=== PATIENT | male | born 1970 | race Caucasian/White ===

== ENCOUNTER 2021-09-10 08:35 | Day surgery (SDC) | payer OTHER, SELFPAY ==
[2021-08-14 13:03] VITALS: BMI 31.1
--- NOTE | 2021-08-16 10:55 | MHC.SHP ---
Pre-Procedural Eval Section A Date of Service: 08/16/21 The patient is an INPATIENT: No Changes since office visit: No Cold of Flu in the past 2 weeks, No New Medical Problems, No Changes in Medication and No Patient answered all questions The History & Physical has been completed within 30 days and I have reviewed it.: Yes Section B Chief Complaint: ectropin of left lower lid Allergies: Allergies Allergy/AdvReac Type Severity Reaction Status Date / Time Penicillins Allergy Intermediate Rash Verified 08/14/21 13:02 Plan Diagnosis/Plan: Unchanged I have reviewed the history and physical and performed a pertinent physical examination on my patient. No changes have occurred unless specified.
--- NOTE | 2021-09-06 08:22 | MHC.SHP ---
Pre-Procedural Eval Section A Date of Service: 09/06/21 The patient is an INPATIENT: No Changes since office visit: No Cold of Flu in the past 2 weeks, No New Medical Problems, No Changes in Medication and No Patient answered all questions The History & Physical has been completed within 30 days and I have reviewed it.: Yes Section B Chief Complaint: ectropin of left lower lid Allergies: Allergies Allergy/AdvReac Type Severity Reaction Status Date / Time Penicillins Allergy Intermediate Rash Verified 08/14/21 13:02 Plan Diagnosis/Plan: Unchanged I have reviewed the history and physical and performed a pertinent physical examination on my patient. No changes have occurred unless specified.
--- NOTE | 2021-09-07 11:11 | P.CONAN_ITS ---
Documented by User: Zohreh Urbano NP 09/07/21 11:11 HPI - Anesthesia Eval Consult details Narrative: 50yo M for Left Lower Lid Ectropion Repair with Punctoplasty [facility]CP [facility] Past Medical History Medical History (Updated 08/14/21 @ 13:02 by Yissel Rojas RN) Borderline hypercholesterolemia COVID-19 vaccine series completed GERD (gastroesophageal reflux disease) HTN (hypertension) Sleep apnea Surgical History Surgical History (Updated 08/14/21 @ 13:02 by Yissel Rojas RN) H/O colonoscopy History of surgery on arm Hx of eye surgery Hx of hand surgery Social History Social History Household Members Other:: elderly father Are you a primary hearing healthcare practitioner to a significant other at home: No Do you presently have visiting nurse or other home services: No Patient Tobacco Use Status: Never used Tobacco Use of substances other than those prescribed or required for medical reasons: No Have you been hit, kicked, punched, or otherwise hurt by someone within the past year? If so, by whom?: No Are you DNR?: No Advance Directives: No Advance Directives Information Provided: Yes Advance Directives on File: No Recently lost weight without trying: No Eating poorly because of decreased appetite: No Nutrition Risks: No Nutritional Risk Poor oral hygiene: No Meds Allergies Allergy/AdvReac Type Severity Reaction Status Date / Time Penicillins Allergy Intermediate Rash Verified 08/14/21 13:02 Home Medications Medication Instructions Recorded Confirmed Last Taken Type lisinopril 40 mg 1 tab PO BEDTIME 08/14/21 08/14/21 Unknown History tablet Exam Exam Date and Time: September 07, 2021 1111 Height,Weight and Vital Signs: Height 6 ft Weight 104.326 kg Assessment and Plan Assessment Anesthesia Assessment: Chart Reviewed Documented by User: Asael Gibbons MD 09/10/21 09:46 [facility] Past Medical History Medical History (Updated 08/14/21 @ 13:02 by Yissel Rojas RN) Borderline hypercholesterolemia COVID-19 vaccine series completed GERD (gastroesophageal reflux disease) HTN (hypertension) Sleep apnea Family History Family history of problems with anesthesia: No Surgical History Surgical History (Updated 08/14/21 @ 13:02 by Yissel Rojas RN) H/O colonoscopy History of surgery on arm Hx of eye surgery Hx of hand surgery History of Problems with Anesthesia: No Social History Social History Household Members Other:: elderly father Are you a primary hearing healthcare practitioner to a significant other at home: No Do you presently have visiting nurse or other home services: No Patient Tobacco Use Status: Never used Tobacco Use of substances other than those prescribed or required for medical reasons: No Have you been hit, kicked, punched, or otherwise hurt by someone within the past year? If so, by whom?: No Are you DNR?: No Advance Directives: No Advance Directives Information Provided: Yes Advance Directives on File: No Recently lost weight without trying: No Eating poorly because of decreased appetite: No Nutrition Risks: No Nutritional Risk Poor oral hygiene: No Meds Allergies Allergy/AdvReac Type Severity Reaction Status Date / Time Penicillins Allergy Intermediate Rash Verified 08/14/21 13:02 Home Medications Medication Instructions Recorded Confirmed Last Taken Type lisinopril 40 mg 1 tab PO BEDTIME 08/14/21 08/14/21 Unknown History tablet Exam Airway Mallampati Class: IV TM Dist: >3cm Neck ROM: Full Assessment and Plan Assessment Anesthesia Assessment: Anesthesia Plan Discussed Final Anesthetic Review Family History of Problems with Anesthesia: No History of Problems with Anesthesia: No NPO: Yes ASA Class: II Final Preanesthetic Review: No Changes in Pt Med Stat, Meds/Allgs Chart Reviewed, Consent Obtained/Reviewed and Anes Risks/Benef Reviewed Patient Risk: Intermediate Procedure Risk: Low Anesthetic Plan Anesthetic Plan: MAC: Disposition: Standard PACU
[2021-09-10 09:40] VITALS: BP 103/77; PULSE 72; RESP 18; TEMP 36.4; O2SAT 97
[2021-09-10] MEDS: Lactated Ringers 500 ML 50 ML IV (09:51)
--- NOTE | 2021-09-10 10:59 | HO.PNOPHT ---
Ophthalmology Procedure Procedure Date of Service: 09/10/21 Ophthalmology Viscoelastic: Not Applicable Ophthalmology Lenses: Not Applicable Procedure Notes: PREOPERATIVE DIAGNOSIS: Left lower lid ectropion POSTOPERATIVE DIAGNOSIS: Same PROCEDURE: Left lateral tarsal strip SURGEON: Lonnie Lee M.D. ANESTHESIA: MAC with Local ESTIMATED BLOOD LOSS: None COMPLICATIONS: None After obtaining informed consent, the patient was brought to the operating room suite, placed in supine position. After adequate sedation per Anesthesia, a local injection of 2% Lidocaine was given temporally to the left periorbital area. A canthotomy cantholysis then was created first utilizing a hemostat followed by excision with Kennedy scissors out to the periosteal rim. A lateral tarsal strip was created utilizing a combination of sharp and blunt dissection with Delgado scissors, as well as 15 blade. Once the lateral tarsal strip was created, double armed 5-0 goretex suture was utilized to attach the lateral tarsal strip to the lateral temporal periorbital periosteum. The tarsal was adjusted until adequate position of the lid to globe was achieved and sutured in place. The skin was then closed with 6-0 plain suture. Erythromycin ointment was placed on the wound. The patient tolerated the procedure well and will be followed up.
[2021-09-10 12:17] VITALS: BP 150/95; PULSE 100; RESP 16; TEMP 37.2; O2SAT 100
[2021-09-10 12:33] VITALS: BP 136/82; PULSE 90; RESP 17; O2SAT 99
[2021-09-10 12:45] VITALS: BP 120/74; PULSE 73; RESP 18; O2SAT 99
[2021-09-10 13:07] VITALS: BP 124/84; PULSE 72; RESP 16; TEMP 36.7; O2SAT 99
[2021-09-10] MEDS: oxyCODONE HCl Immed Release 5 MG TABLET 10 MG PO (14:14)
[2021-09-10] MEDS: Acetaminophen 325 MG TABLET 650 MG PO (14:15)
== END 2021-09-10 13:28 | disposition home or self-care (01) ==
PROVIDERS: PCP Internal Medicine; Visit Provider Ophthalmology
PROC: (CPT 67917; principal; 2021-09-10 11:10)
DX: H02.105 Unspecified ectropion of left lower eyelid (principal); G47.33 Obstructive sleep apnea (adult) (pediatric); I10 Essential (primary) hypertension; Q87.0 Congenital malformation syndromes predominantly affecting facial appearance; Q10 Congenital malformations of eyelid, lacrimal apparatus and orbit; Z79.899 Other long term (current) drug therapy; Z88.0 Allergy status to penicillin
CPT/HCPCS: 67917; J2250; J2405; J3010